=== PATIENT | male | born 1995 | race Caucasian/White ===

== ENCOUNTER 2022-03-29 04:17 | Emergency (ER) | payer BC, MEDICAID ==
[~2022-03-29] VITALS: Ht 172.7 cm; Wt 98.0 kg
[2022-03-29 04:22] VITALS: BP 139/91
== END 2022-03-29 05:03 | disposition left against medical advice (07) ==
LOC: ER 04:17
DX: Z53.21 Procedure and treatment not carried out due to patient leaving prior to being seen by health care provider (principal)